=== PATIENT | female | born 1940 | race Caucasian/White ===

== ENCOUNTER → 2017-03-30 13:11 | Outpatient (CLI) | payer MEDICARE, OTHER, SELFPAY ==
--- NOTE | 2017-03-30 13:13 | VDLE_ITS ---
Reason For Study: F/U LLE SVT RIGHT LEFT CFV is compressible, spontaneous, phasic, CFV is compressible, spontaneous, phasic, competent and demonstrates normal competent, and demonstrates normal augmentation. augmentation. Procedure FV is compressible, spontaneous, phasic, Exam performed in department. competent and demonstrates normal augmentation. POP V is compressible, spontaneous, phasic, competent and demonstrates normal augmentation. T/P Trunk is compressible. PTV is compressible. LT PerV is compressible. GSV is dilated and non-compressible from 1.4 cm distal to SFJ to prox calf then becoming compressible mid/dist Thrombus filled varicosities noted medial LLE. Interpretation Summary Deep veins of the left lower extremity are patent and compressible segmentally. There is no evidence of left lower extremity deep vein thrombosis. Valvular competence appears intact within the proximal deep venous system on the left . Acute superficial thrombophlebitis is noted in the left great saphenous vein from 1.4 centimeters distal to the left sapheno-femoral junction to the left proximal calf. The left great saphenous vein is patent and compressible in the left mid- and distal calf. Acute superficial thrombophlebitis is noted involving superficial varicosities in the medial left lower extremity. There has been no significant change since a prior study on 02/22/2017. Ordering Physician: Dinh Humphries Performed By: Beatriz Barrera RVT
== END ==
PROVIDERS: Visit Provider Surgery
DX: M79.605 Pain in left leg (principal); Z86.72 Personal history of thrombophlebitis; I87.2 Venous insufficiency (chronic) (peripheral); I83.10 Varicose veins of unspecified lower extremity with inflammation
CPT/HCPCS: 93971